=== PATIENT | female | born 1990 | race Caucasian/White ===

== ENCOUNTER → 2018-03-06 | Emergency (ER) | payer OTHER ==
[~2018-03-06] VITALS: Ht 165.1 cm; Wt 63.0 kg
== END | disposition home or self-care (01) ==
LOC: ER 19:53 → EDBD 20:16 → ER 20:16
DX: S62.025A Nondisplaced fracture of middle third of navicular [scaphoid] bone of left wrist, initial encounter for closed fracture (principal); W18.39XA Other fall on same level, initial encounter; Y93.89 Activity, other specified; Y92.89 Other specified places as the place of occurrence of the external cause; Y99.8 Other external cause status

== ENCOUNTER 2018-03-11 06:05 | Day surgery (SDC) | payer OTHER | END 2018-03-11 10:10 | disposition home or self-care (01) | LOC: CIR.AMB 06:05 | DX: S62.012A Displaced fracture of distal pole of navicular [scaphoid] bone of left wrist, initial encounter for closed fracture (principal) ==

== ENCOUNTER 2021-02-18 13:58 | Outpatient (CLI) | payer OTHER | END 2021-02-18 17:53 | disposition left against medical advice (07) | LOC: OBS/DEL 13:58 | PROVIDERS: ATTEND Obstetrics & Gynecology | DX: O26.892 Other specified pregnancy related conditions, second trimester (principal); R10.2 Pelvic and perineal pain; Z3A.26 26 weeks gestation of pregnancy ==

== ENCOUNTER → 2021-04-25 09:06 | Outpatient (CLI) | payer OTHER ==
[~2021-04-25 09:06] MED LIST: KETO10TA2 PO; OXYC1TAB9 PO; PRENATABS RX T1 EACH PO
== END | disposition home or self-care (01) ==
LOC: LAB 09:06
PROVIDERS: ATTEND Obstetrics & Gynecology Maternal & Fetal Medicine
DX: Z20.828 Contact with and (suspected) exposure to other viral communicable diseases (principal); Z34.83 Encounter for supervision of other normal pregnancy, third trimester; U07.1 COVID-19

== ENCOUNTER 2021-05-09 13:00 | Inpatient (IN) | payer OTHER ==
[~2021-05-09] VITALS: Ht 157.5 cm; Wt 70.3 kg
[2021-05-24] MEDS ORDERED: PRENATABS RX T1 EACH PO (06:47)
[2021-05-26] MEDS ORDERED: KETO10TA2 PO (17:56)
[2021-05-26] MEDS ORDERED: OXYC1TAB9 PO (17:56)
== END 2021-05-26 19:32 | disposition home or self-care (01) | DRG 788 ==
LOC: LDR 05-23 13:00 → SURG-SUITE 05-24 21:22
PROVIDERS: ADMIT Obstetrics & Gynecology; ATTEND Obstetrics & Gynecology
PROC: 3E033VJ Introduction of Other Hormone into Peripheral Vein, Percutaneous Approach (ICD-10-PCS; 2021-05-24)
PROC: 4A1HXFZ Monitoring of Products of Conception, Cardiac Rhythm, External Approach (ICD-10-PCS; 2021-05-24)
PROC: 10D00Z1 Extraction of Products of Conception, Low, Open Approach (ICD-10-PCS; principal; 2021-05-24 17:00)
DX: O61.0 Failed medical induction of labor (principal); O48.0 Post-term pregnancy; Z37.0 Single live birth; Z3A.40 40 weeks gestation of pregnancy; Z20.822 Contact with and (suspected) exposure to COVID-19

== ENCOUNTER 2021-05-16 10:03 | Outpatient (CLI) | payer OTHER | END 2021-05-16 10:27 | disposition home or self-care (01) | LOC: NST 10:03 | PROVIDERS: ATTEND Obstetrics & Gynecology | DX: Z34.03 Encounter for supervision of normal first pregnancy, third trimester (principal) ==

== ENCOUNTER 2021-05-23 08:12 | Outpatient (CLI) | payer OTHER ==
[2021-05-24] MEDS ORDERED: PRENATABS RX T1 EACH PO (06:47)
== END 2021-05-23 08:56 | disposition home or self-care (01) ==
LOC: NST 08:12
PROVIDERS: ATTEND Obstetrics & Gynecology Maternal & Fetal Medicine
DX: O48.0 Post-term pregnancy (principal)

== ENCOUNTER 2023-09-06 08:45 | Inpatient (IN) | payer OTHER ==
[~2023-09-06] VITALS: Ht 165.1 cm; Wt 76.2 kg
[2023-09-11 09:28] LABS: ALBUMIN 2.7 gm/dL (3.4-5.0); BILIRUBIN TOTAL 0.42 mg/dL (0.3-1.2); CALCIUM 8.3 mg/dL (8.5-10.1); CREATININE SERUM 0.68 mg/dL (0.55-1.02); GFR 100.92; GLOBULINA 3.2 G/DL (2.4-3.5); POTASSIUM 3.77 mEq/L (3.5-5.1); TOTAL PROTEIN 5.9 gm/dL (6.4-8.2)
[2023-09-11 09:43] LABS: INR < 0.93; PARTIAL THROMBOPLASTIN TIME 27.7 SECONDS (22.0-34.0); PROTHROMBIN TIME 9.5 SECONDS (9.0-11.5)
[2023-09-12 07:36] LABS: HEMATOCRIT 36.3 % (36.0-45.00); HEMOGLOBIN 12.1 g/dL (12.0-15.00); MEAN CELL VOLUME 94.1 fL (80.00-100.00); MEAN CORPUSCULAR HEMOGLOBIN 31.3 pg (27.00-32.0); MEAN CORPUSCULAR HGB CONC 33.3 g/dl (32.0-36.0); PLATELET COUNT 177 K/uL (150-450); RED BLOOD COUNT 3.86 M/uL (4.00-6.00); RED CELL DISTRIBUTION WIDTH 13.5 % (11.5-14.5)
== END 2023-09-13 12:23 | disposition home or self-care (01) | DRG 788 ==
LOC: OB/GYN 09-11 08:45 → O/R 09-11 08:51 → OB/GYN 09-11 15:40
PROVIDERS: Obstetrics & Gynecology; ADMIT Obstetrics & Gynecology Maternal & Fetal Medicine; ATTEND Obstetrics & Gynecology Maternal & Fetal Medicine
PROC: 4A1HXCZ Monitoring of Products of Conception, Cardiac Rate, External Approach (ICD-10-PCS; 2023-09-11)
PROC: 10D00Z1 Extraction of Products of Conception, Low, Open Approach (ICD-10-PCS; principal; 2023-09-11 18:00)
DX: O34.211 Maternal care for low transverse scar from previous cesarean delivery (principal); Z3A.39 39 weeks gestation of pregnancy; Z37.0 Single live birth; Z20.822 Contact with and (suspected) exposure to COVID-19